=== PATIENT | male | born 1990 | race African-American/Black ===

== ENCOUNTER 2019-03-07 23:33 | Emergency (ER) | payer OTHER ==
[~2019-03-07] VITALS: Ht 182.9 cm; Wt 81.8 kg
[2019-03-07 23:54] VITALS: BP 138/64
[2019-03-08 00:50] LABS: HEMATOCRIT 42.2 % (42.0-52.0); MEAN CORPUSCULAR HEMOGLOBIN 32.1 pg (27.0-33.0); MEAN CORPUSCULAR HGB CONC 35.5 g/dl (32.0-36.5); MEAN CORPUSCULAR VOLUME 90.2 fl (80.0-96.0); PLATELET COUNT, AUTOMATED 211 10^3/uL (150-450); RED BLOOD COUNT 4.68 10^6/uL (4.30-6.10); WHITE BLOOD COUNT 5.9 10^3/uL (4.0-10.0)
[2019-03-08 01:36] LABS: ALT/SGPT 30 U/L (12-78); BILIRUBIN,DIRECT 0.1 MG/DL (0.0-0.2); BILIRUBIN,TOTAL 0.4 MG/DL (0.2-1.0); BLOOD UREA NITROGEN 14 MG/DL (7-18); CALCIUM LEVEL 8.2 MG/DL (8.5-10.1); CARBON DIOXIDE LEVEL 27 MEQ/L (21-32); CHLORIDE LEVEL 105 MEQ/L (98-107); CREATININE FOR GFR 0.96 MG/DL (0.70-1.30); ETHYL ALCOHOL (ETHANOL) 0.067 % (0.000-0.010); GLOMERULAR FILTRATION RATE > 60.0 (>60); GLUCOSE, FASTING 91 MG/DL (70-100); POTASSIUM SERUM 4.4 MEQ/L (3.5-5.1); SALICYLATE LEVEL < 1.7 MG/DL (5.0-30.0); SODIUM LEVEL 139 MEQ/L (136-145); TOTAL PROTEIN 7.4 GM/DL (6.4-8.2)
[2019-03-08 01:37] LABS: ACETAMINOPHEN LEVEL < 2.0 UG/ML (10.0-30.0); AMPHETAMINES LEVEL URINE NEGATIVE (NEGATIVE); BARBITURATES URINE NEGATIVE (NEGATIVE); BENZODIAZEPINES URINE NEGATIVE (NEGATIVE); CANNABINOIDS URINE NEGATIVE (NEGATIVE); COCAINE METABOLITE URINE NEGATIVE (NEGATIVE); METHADONE URINE NEGATIVE (NEGATIVE); OPIATES URINE NEGATIVE (NEGATIVE); PHENCYCLIDINE URINE NEGATIVE (NEGATIVE)
--- NOTE | 2019-03-08 21:52 | ECGEPIP ---
Stationary ECG Study [facility] - ED Test Date: 2019-03-08 Pat Name: BETO LENNON Department: Room: - Gender: M Personal Injury Paralegal: gt : 1990 Requested By: LEI GONGORA Order Number: [id number] Reading MD: Rosalba Hirsch Measurements Intervals Midnight Rate: 63 P: 57 MN: 208 QRS: 40 QRSD: 90 T: 39 QT: 368 QTc: 379 Interpretive Statements SINUS RHYTHM WITH SINUS ARRHYTHMIA LOW VOLTAGE LIMB NO PRIOR FOR COMPARISON Electronically Signed On 03-08-2019 21:51:48 EDT by Rosalba Hirsch
== END 2019-03-08 03:42 | disposition home or self-care (01) ==
LOC: M ED 23:33 → EDBD 23:33 → M ED 03-08 03:42
DX: F43.9 Reaction to severe stress, unspecified (principal)
CPT/HCPCS: 36415; 80048; 80076; 80307; 84443; 85027; 93005; 99284; G0480

== ENCOUNTER → 2019-03-29 | Outpatient (REF) | payer OTHER ==
[2019-03-29 11:16] LABS: SEMEN APPEARANCE OPAQUE (OPAQUE)
[2019-03-29 11:17] LABS: SEMEN VISCOSITY LIQUID (LIQUID); SEMEN VOLUME 2.9 ML (4.0-5.0); SEMEN WBC <=1 M/ml (<=1 M/ml); SEMEN pH 8.5 (7.0-8.0)
== END ==
LOC: M LAB REF 11:05
PROVIDERS: ATTEND Obstetrics & Gynecology
DX: N46.8 Other male infertility (principal)

== ENCOUNTER 2020-06-14 11:28 | Emergency (ER) | payer OTHER ==
[~2020-06-14] VITALS: Ht 182.9 cm; Wt 75.7 kg
--- NOTE | 2020-06-14 13:15 | REPVR ---
PROCEDURE INFORMATION: Exam: CT Maxillofacial Without Contrast Exam date and time: 06/14/2020 12:30 PM Age: 29 years old Clinical indication: Injury or trauma; Fall; Initial encounter; Blunt trauma (contusions or hematomas); Forehead and jaw; Not specified; Additional info: Fall with loc and pain with jaw movement R/O FX TECHNIQUE: Imaging protocol: Computed tomography images of the face without contrast. Radiation optimization: All CT scans at this facility use at least one of these dose optimization techniques: automated exposure control; mA and/or kV adjustment per patient size (includes targeted exams where dose is matched to clinical indication); or iterative reconstruction. COMPARISON: No relevant prior studies available. FINDINGS: Orbits: Orbits are normal. Globes are unremarkable. Bones/joints: No acute maxillofacial fractures. Sinuses: Normal. No air-fluid levels. Dental: Scattered dental disease, including a periapical erosion traversing the outer cortex of the left mandibular premolar. Soft tissues: Unremarkable. Other findings: Elongated bilateral styloid processes/mineralized stylohyoid ligaments, commonly incidental lacking referable symptomatology. IMPRESSION: No acute maxillofacial fractures. Electronically signed by: Thor Perdomo On 06/14/2020 13:15:49 PM
[2020-06-14 13:43] VITALS: BP 119/78
--- NOTE | 2020-06-14 14:44 | REP ---
CT BRAIN WITHOUT CONTRAST: REASON: Trauma. TECHNIQUE: 4.5 mm contiguous transaxial sections were obtained from the skull base to the cerebral convexities with thin cuts through the posterior fossa without the administration of intravenous contrast. FINDINGS: The ventricles and sulci are consistent with the patient's age. There are no extra-axial fluid collections. There is no mass effect. The deep cerebral white matter is consistent with the patient's age. The orbital and petrous structures, cerebellopontine angles, and posterior fossa are unremarkable. The sella turcica, cavernous, and paracavernous structures are essentially unremarkable. The visualized portions of the paranasal sinuses and mastoid air cells are clear. Images of the skull base show no gross abnormality. IMPRESSION: Essentially unremarkable CT examination of the brain. Electronically Signed by Gabe Motta DO 06/14/2020 02:50 P
== END 2020-06-14 13:44 | disposition home or self-care (01) ==
LOC: M ED 11:28
DX: S09.90XA Unspecified injury of head, initial encounter (principal); S01.312A Laceration without foreign body of left ear, initial encounter; W01.10XA Fall on same level from slipping, tripping and stumbling with subsequent striking against unspecified object, initial encounter; Y92.830 Public park as the place of occurrence of the external cause; Y93.89 Activity, other specified; Y99.9 Unspecified external cause status